=== PATIENT | female | born 1980 | race Caucasian/White ===

== ENCOUNTER 2019-07-23 11:07 | Inpatient (IN) | payer OTHER ==
[~2019-07-23] VITALS: Ht 162.6 cm; Wt 102.5 kg
[2019-07-23] MEDS ORDERED: LR 1,000 ML IV.SOLN IV ONE (13:00)
[2019-07-23] MEDS ORDERED: DEXAMETHASONE SOD PHOSPHATE 4 MG/ML VIAL IVP ONE (13:00)
[2019-07-23] MEDS ORDERED: ROPIVACAINE HCL/PF 5 MG/ML 0.5% 30 ML VIAL INFIL ONE (13:00)
[2019-07-23] MEDS ORDERED: MIDAZOLAM HCL 5 MG/5 ML VIAL IVP ONE (13:00)
[2019-07-23] MEDS ORDERED: ONDANSETRON HCL 4 MG/2 ML VIAL IVP ONE (13:00)
[2019-07-23] MEDS ORDERED: fentaNYL CITRATE 250 MCG/5 ML AMP IV ONE (13:00)
[2019-07-23] MEDS ORDERED: CLINDAMYCIN PHOSPHATE 900 mg/50mL D5W IV ONE (13:00)
[2019-07-23] MEDS ORDERED: ROPIVACAINE HCL/PF 0.2% EPIDURAL 200 ML PLAST..BAG EP ONE (13:00)
[2019-07-23] MEDS ORDERED: SUGAMMADEX SODIUM 200 MG/2 ML VIAL IV ONE (13:00)
[2019-07-23] MEDS ORDERED: ONDANSETRON HCL 4 MG/2 ML VIAL IVP PRN (13:30)
[2019-07-23] MEDS ORDERED: OXYCODONE/ACETAMINOPHEN 5-325 TABLET PO PRN ×2 (13:30)
[2019-07-23] MEDS ORDERED: LR 1,000 ML IV SCH (14:47)
[2019-07-23] MEDS: fentaNYL CITRATE/PF 100 MCG/2 ML AMP IVP PRN (14:53)
[2019-07-23] MEDS ORDERED: FENT2mCg/mL-ROPIVA0.2%/NS EPID 200 ML EP SCH (15:00)
[2019-07-23] MEDS ORDERED: MEPERIDINE HCL/PF 25 MG/ML DISP.SYRIN IVP PRN (15:00)
[2019-07-23] MEDS ORDERED: fentaNYL CITRATE/PF 100 MCG/2 ML AMP ONE ×2 (15:04→15:14)
[2019-07-23] MEDS ORDERED: MIDAZOLAM HCL 5 MG/5 ML VIAL ONE (15:34)
[2019-07-23] MEDS ORDERED: MIDAZOLAM HCL 5 MG/5 ML VIAL IVP PRN (15:45)
[2019-07-23 16:35] VITALS: BP_SYST 132
[2019-07-23] MEDS ORDERED: PREG75CA PO (16:47)
[2019-07-23] MEDS ORDERED: OXYC-133 PO (16:47)
[2019-07-23] MEDS ORDERED: [UNRECOGNIZED DRUG - OTHER] PO (16:47)
[2019-07-23] MEDS: OXYCODONE/ACETAMINOPHEN *10*mg/325 mg TABLET PO PRN ×2 (17:28→23:24)
[2019-07-23 18:45] VITALS: BP_SYST 134
[2019-07-23 20:00] VITALS: BP_SYST 135
[2019-07-23] MEDS ORDERED: PREGABALIN 75 MG CAPSULE (LYRICA) PO SCH (20:30)
[2019-07-23] MEDS: BUPRENORPHINE PO SCH (20:59)
[2019-07-23] MEDS ORDERED: [UNRECOGNIZED DRUG - OTHER] PO SCH (21:00)
[2019-07-24] VITALS: BP_SYST 132
[2019-07-24] MEDS: OXYCODONE/ACETAMINOPHEN *10*mg/325 mg TABLET PO PRN ×2 (05:33→12:18)
[2019-07-24 08:00] VITALS: BP_SYST 114
[2019-07-24] MEDS ORDERED: PREGABALIN 75 MG CAPSULE (LYRICA) PO SCH (09:00)
[2019-07-24] MEDS: BUPRENORPHINE PO SCH (09:15)
[2019-07-24] MEDS: fentaNYL CITRATE/PF 100 MCG/2 ML AMP IVP PRN (09:25)
[2019-07-24 15:25] VITALS: BP_SYST 137
== END 2019-07-24 15:45 | disposition home or self-care (01) | DRG 745 ==
LOC: SDS 11:07 → STU 11:11 → SMU 17:23 → STU 21:52 → SDS 23:03
PROVIDERS: ADMIT Obstetrics & Gynecology; ATTEND Obstetrics & Gynecology
PROC: 0WJG4ZZ Inspection of Peritoneal Cavity, Percutaneous Endoscopic Approach (ICD-10-PCS; principal; 2019-07-23 13:00)
DX: N83.201 Unspecified ovarian cyst, right side (principal); R10.2 Pelvic and perineal pain; E66.9 Obesity, unspecified; G43.909 Migraine, unspecified, not intractable, without status migrainosus; Z87.01 Personal history of pneumonia (recurrent); Z88.1 Allergy status to other antibiotic agents; Z98.891 History of uterine scar from previous surgery; Z68.38 Body mass index [BMI] 38.0-38.9, adult
CPT/HCPCS: C1727; C9399; G0378; J1100; J2250; J2405; J3010; J3490; J7120